=== PATIENT | female | born 1970 | race Caucasian/White ===

== ENCOUNTER 2019-11-16 16:08 | Emergency (ER) | payer OTHER ==
[~2019-11-16 16:08] MED LIST: ADULT ASPIRIN E81 MG PO; AMOXICILLIN500 MG PO; ASPIRIN EC81 MG PO; AUGMENTIN875 MG OR; CARE AD; CELEXA20 M1 PO; CORTISPORIN OTI10 M2 AD; DOXYCYCL HYC100 M3 PO; EQL IBUPROFEN200 MG PO; FLEXERIL OR; FLUZONE SPLT1 M1 IM; L-METHYLFOLATE15 M1 PO; LISINOPRIL10 MG PO; LISINOPRIL20 M1 PO; LORTAB 5 OR; MEGESTROL AC40 MG OR; MULTIVITAMI1 PO; MULTIVITAMIN OR; NAPROSYN500 MG PO; NO MEDS; PAROXETINE HCL20 MG PO; PAXIL 20 MG; PRAVASTATIN10 MG PO; TORADOL PO; TRAMADOL HCL50 MG PO; TRAZODONE50 MG PO
[2019-11-16] MEDS ORDERED: NAPROXEN500 MG PO (18:51)
[2019-11-16 18:52] VITALS: BP 154/70
== END 2019-11-16 18:52 | disposition home or self-care (01) | DRG 563 ==
LOC: ED 16:08
DX: S43.402A Unspecified sprain of left shoulder joint, initial encounter (principal); S13.9XXA Sprain of joints and ligaments of unspecified parts of neck, initial encounter; S83.92XA Sprain of unspecified site of left knee, initial encounter; I10 Essential (primary) hypertension; W01.0XXA Fall on same level from slipping, tripping and stumbling without subsequent striking against object, initial encounter; Y92.89 Other specified places as the place of occurrence of the external cause; Y99.0 Civilian activity done for income or pay

== ENCOUNTER 2021-04-22 20:00 | Emergency (ER) | payer OTHER ==
[~2021-04-22] VITALS: Ht 162.6 cm; Wt 104.5 kg
[~2021-04-22 20:00] MED LIST changes: +NAPROXEN500 MG PO
[2021-04-22] MEDS ORDERED: CITALOPRAM40 MG PO (21:02)
[2021-04-22] MEDS ORDERED: LOSARTAN POTAS100 MG PO (21:02)
[2021-04-22 21:25] VITALS: BP 181/86
[2021-04-22] MEDS ORDERED: TRAZODONE50 MG PO (21:27)
[2021-04-22] MEDS ORDERED: ATORVASTATIN CA20 MG PO (21:27)
== END 2021-04-22 21:25 | disposition home or self-care (01) | DRG 605 ==
LOC: ED 20:00
DX: S80.01XA Contusion of right knee, initial encounter (principal); I10 Essential (primary) hypertension; F41.9 Anxiety disorder, unspecified; F32.A Depression, unspecified; W18.30XA Fall on same level, unspecified, initial encounter; Y92.89 Other specified places as the place of occurrence of the external cause; Y99.0 Civilian activity done for income or pay